=== PATIENT | male | born 1955 | race Caucasian/White ===

== ENCOUNTER 2025-01-14 19:19 | Emergency (ER) | payer MEDICARE, OTHER ==
[~2025-01-14] VITALS: Ht 175.3 cm; Wt 115.6 kg
[2025-01-14 20:14] LABS: BASO # 0.1 10^3/uL (0.0-0.2); EOS # 0.2 10^3/uL (0.0-0.5); EOS % 2.9 % (0.0-3.0); HEMATOCRIT 47.8 % (42.0-52.0); HEMOGLOBIN 15.1 g/dl (13.5-17.5); LYMPH # 1.9 10^3/uL (1.5-5.0); LYMPH % 26.5 % (24.0-44.0); MEAN CORPUSCULAR HEMOGLOBIN 30.3 pg (27.0-33.0); MEAN CORPUSCULAR HGB CONC 31.6 g/dl (32.0-36.5); MEAN CORPUSCULAR VOLUME 95.8 fl (80.0-96.0); MONO # 1.1 10^3/uL (0.0-0.8); MONO % 15.2 % (2.0-8.0); NEUTROPHILS # 3.9 10^3/uL (1.5-8.5); NEUTROPHILS % 54.3 % (36.0-66.0); RED BLOOD COUNT 4.99 10^6/uL (4.30-6.10); WHITE BLOOD COUNT 7.2 10^3/uL (4.0-10.0)
[2025-01-14 20:48] LABS: CK-MB VALUE MASS 4.2 NG/ML (<3.6)
[2025-01-14 20:50] LABS: BLOOD UREA NITROGEN 15 MG/DL (9-23); CALCIUM LEVEL 8.9 MG/DL (8.3-10.6); CARBON DIOXIDE LEVEL 29 MMOL/L (20-31); CHLORIDE LEVEL 103 MMOL/L (98-107); CPK CREATINE PHOSPHOKINASE 246 U/L (46-171); GLOMERULAR FILTRATION RATE > 60.0 (>49); GLUCOSE, FASTING 103 MG/DL (74-106); POTASSIUM SERUM 4.3 MMOL/L (3.5-5.1); SODIUM LEVEL 141 MMOL/L (136-145)
[2025-01-14] MEDS ORDERED: ISOVUE-370 76% 100ML VIAL As Ordered ONE (21:01)
[2025-01-14] MEDS: KETOROLAC 30 MG/ML 1ML VIAL IV ONE (21:09)
[2025-01-14] MEDS: NITROGLYCERIN 0.4MG SUBL TABLET SL PRN (21:10)
[2025-01-14 21:26] LABS: CK-MB VALUE MASS 4.4 NG/ML (<3.6)
[2025-01-14 21:29] LABS: MB/CK RELATIVE INDEX 1.79 (< OR =4)
[2025-01-14 21:35] VITALS: BP 134/72
[2025-01-14] MEDS ORDERED: HEPARIN SOD (PORCINE) 5000UNITS/ML 1ML VIAL/SYRINGE IV PRN (21:45)
[2025-01-14 22:13] LABS: HEMATOCRIT 42.8 % (42.0-52.0); HEMOGLOBIN 14.3 g/dl (13.5-17.5); MEAN CORPUSCULAR HGB CONC 33.4 g/dl (32.0-36.5); MEAN CORPUSCULAR VOLUME 89.7 fl (80.0-96.0); PLATELET COUNT, AUTOMATED 236 10^3/uL (150-450); RED BLOOD COUNT 4.77 10^6/uL (4.30-6.10); WHITE BLOOD COUNT 9.6 10^3/uL (4.0-10.0)
[2025-01-14] MEDS: ASPIRIN 325 MG TAB PO ONE (22:49)
[2025-01-14] MEDS: HEPARIN DRIP 25,000 UNITS in IV 1 EA IV SCH (22:51)
[2025-01-15] MEDS: ONDANSETRON 4MG 2ML VIAL IV ONE (01:56)
[2025-01-15] MEDS: CALCIUM CARBONATE 500 MG CHEW U/D PO ONE (01:56)
[2025-01-15] MEDS: MORPHINE 4 MG/ML 1ML VIAL IV ONE ×2 (01:57→06:33)
[2025-01-15 06:15] VITALS: BP 167/98; TEMP 98.6
[2025-01-15 06:33] VITALS: O2SAT 96
== END 2025-01-15 06:18 | disposition short-term general hospital (02) ==
LOC: M ED 19:19
DX: I21.4 Non-ST elevation (NSTEMI) myocardial infarction (principal); E78.5 Hyperlipidemia, unspecified; R00.0 Tachycardia, unspecified
CPT/HCPCS: 71045; 71275; 80048; 82550; 82553; 84484; 85025; 85027; 85049; 85730; 87486; 87581; 87633; 87798; 93005; 93041; 94760; 96365; 96366; 96375; 96376; 99285; J1885; J2405; Q9967